=== PATIENT | male | born 1955 | race Caucasian/White ===

== ENCOUNTER 2018-07-23 17:19 | Emergency (ER) | payer BC ==
[2018-07-23] MEDS ORDERED: Famotidine 20 MG TAB ONE (17:33)
[2018-07-23] MEDS ORDERED: predniSONE 20 MG TAB ONE (17:33)
[2018-07-23] MEDS ORDERED: diphenhydrAMINE 25 MG CAP ONE (17:33)
== END 2018-07-23 18:02 | disposition home or self-care (01) ==
LOC: SCSER 17:19
DX: T78.40XA Allergy, unspecified, initial encounter (principal)
CPT/HCPCS: 99283; J7506

== ENCOUNTER 2018-08-04 16:26 | Outpatient (CLI) | payer BC ==
--- NOTE | 2018-08-04 17:12 | RAD ---
THREE VIEWS RIGHT FOOT: 08/04/18 HISTORY: Pain third and fourth metatarsals. AP, lateral and oblique views right foot obtained. There is a prominent calcaneal bone spur. Hallux valgus deformity is seen in the first metatarsophala ngeal joint. The bases of the metatarsals are unremarkable with no evidence of fractures. No bony lesions seen. No significant osteoarthritic changes seen. IMPRESSION: No evidence of acute right foot fractures or bony lesions. POS: [facility]
== END 2018-08-04 16:27 | disposition home or self-care (01) ==
LOC: BICRAD 16:26
PROVIDERS: ATTEND Internal Medicine Rheumatology
DX: M79.671 Pain in right foot (principal)

== ENCOUNTER 2018-12-03 15:56 | Outpatient (CLI) | payer BC ==
--- NOTE | 2018-12-03 16:36 | RAD ---
FEXAM: Chest Two Views 12/03/2018 4:33 PM HISTORY: Rheumatoid arthritis COMPARISON: None FINDINGS: Heart: Normal Pulmonary vessels: Pulmonary vasculature appears within normal limits. Costophrenic angles: The lungs are clear. Lungs: No confluent pneumonia, overt edema, pleural effusion, or other acute process. Pneumothorax: None Osseous structures: No acute osseous abnormality. IMPRESSION: No significant acute intrathoracic disease.
== END 2018-12-03 15:57 | disposition home or self-care (01) ==
LOC: BICRAD 15:56
PROVIDERS: ATTEND Internal Medicine Rheumatology
DX: M05.9 Rheumatoid arthritis with rheumatoid factor, unspecified (principal); M25.50 Pain in unspecified joint
CPT/HCPCS: 71046

== ENCOUNTER 2023-02-12 08:30 | Emergency (ER) | payer BC | END 2023-02-12 11:20 | disposition home or self-care (01) | LOC: ERS 08:30 | DX: S86.911A Strain of unspecified muscle(s) and tendon(s) at lower leg level, right leg, initial encounter (principal); W28.XXXA Contact with powered lawn mower, initial encounter ==

== ENCOUNTER 2023-04-14 08:01 | Outpatient (CLI) | payer BC ==
[2023-04-14] MEDS ORDERED: Iopamidol 370 76% 100 ML VIAL ONE (09:35)
== END 2023-04-14 08:02 | disposition home or self-care (01) ==
LOC: CT 08:01
PROVIDERS: ATTEND Internal Medicine Cardiovascular Disease
DX: I73.9 Peripheral vascular disease, unspecified (principal); I82.431 Acute embolism and thrombosis of right popliteal vein; I77.4 Celiac artery compression syndrome
CPT/HCPCS: 75635; 82565; Q9967

== ENCOUNTER 2023-04-23 15:50 | Outpatient (CLI) | payer BC ==
[2023-04-23 16:52] LABS: Hematocrit 35.5 % (38.8-50.0); Hemoglobin 11.8 g/dL (13.5-17.5); Mean Corpuscular HGB CONC 33.2 g/dL (32.0-36.0); Mean Corpuscular Hemoglobin 33.2 pg (27.0-33.0); Mean Platelet Volume 9.1 fl (7.4-10.4); Platelet Count 307 10x3/uL (150-450); RBC Distribution Width 12.9 % (11.5-14.5); Red Blood Cell (RBC) Count 3.55 10x6/uL (4.32-5.72); White Blood Cell (WBC) Count 5.4 10x3/uL (3.5-10.5)
[2023-04-23 17:17] LABS: Anion Gap 18 mmol/L (10-20); BUN (Urea Nitrogen) 23 mg/dL (8.4-25.7); Calc. Creatinine Clearance 0 mL/min (70-130); Calcium 9.1 mg/dL (7.8-10.44); Carbon Dioxide 23 mmol/L (23-31); Chloride 106 mmol/L (98-107); Estimated GFR 86; Glucose 89 mg/dL (80-115); Potassium 4.2 mmol/L (3.5-5.1); Sodium 143 mmol/L (136-145)
== END 2023-04-23 15:51 | disposition home or self-care (01) ==
LOC: LABBT 15:50
PROVIDERS: ATTEND Thoracic Surgery (Cardiothoracic Vascular Surgery)
DX: Z01.818 Encounter for other preprocedural examination (principal); I73.9 Peripheral vascular disease, unspecified
CPT/HCPCS: 80048; 85027; 93005; 93010

== ENCOUNTER 2023-04-23 16:00 | Inpatient (IN) | payer BC, MEDICARE ==
[2023-04-23 16:30] VITALS: BMI 30.2
[2023-04-24] MEDS ORDERED: PROPOFOL 200 MG/20 ML VIAL ONE (06:35)
[2023-04-24] MEDS ORDERED: PHENYLEPHRINE-NS 100 MCG/ML 10 ML SYRINGE ONE (06:35)
[2023-04-24] MEDS ORDERED: Dexamethasone 20 MG/5 ML VIAL ONE (06:35)
[2023-04-24] MEDS ORDERED: Ondansetron PF 4 MG/2 ML Vial ONE (06:35)
[2023-04-24] MEDS ORDERED: Lidocaine 1% PF 5 ML VIAL ONE (06:35)
[2023-04-24] MEDS ORDERED: Acetaminophen 500 MG TAB ONE (06:38)
[2023-04-24] MEDS ORDERED: Heparin 5,000 UNITS/ML VIAL ONE (06:40)
[2023-04-24] MEDS ORDERED: Bupivacaine 0.25% HCL 30 ML VIAL ONE (06:40)
[2023-04-24] MEDS ORDERED: Protamine Sulfate 50 MG/5 ML VIAL ONE (06:40)
[2023-04-24] MEDS ORDERED: EPINEPHrine 1 MG/10 ML Abboject SYRINGE ONE (06:40)
[2023-04-24] MEDS ORDERED: Phenylephrine 10 MG/ML VIAL ONE (06:55)
[2023-04-24] MEDS ORDERED: fentaNYL 50 mcg/mL 1 mL Vial ONE ×4 (06:55→11:27)
[2023-04-24] MEDS ORDERED: Magnesium 5 GM/10 ML VIAL ONE (06:55)
[2023-04-24] MEDS ORDERED: Clindamycin/D5W 900 mg/50 ml Premix Bag ONE (07:18)
[2023-04-24] MEDS ORDERED: Ondansetron HCl/PF 4 MG/2 ML Vial IVP PRN (08:39)
[2023-04-24] MEDS ORDERED: HYDROmorphone 2 MG/ML VIAL SLOW IVP PRN (08:39)
[2023-04-24] MEDS ORDERED: Promethazine HCl 25 MG/ML VIAL IM PRN (08:39)
[2023-04-24] MEDS ORDERED: Ipratropium/Albuterol 3 ML NEB NEB PRN (10:32)
[2023-04-24] MEDS ORDERED: fentaNYL 50 mcg/mL 1 mL Vial SLOW IVP PRN ×2 (10:32)
[2023-04-24] MEDS ORDERED: Ondansetron PF 4 MG/2 ML Vial IVP PRN (10:32)
[2023-04-24] MEDS ORDERED: HYDROcodone/Acetaminophen 5/325 mg Tablet PO PRN (10:32)
[2023-04-24] MEDS ORDERED: Acetaminophen 325 MG TAB PO PRN (10:32)
[2023-04-24] MEDS ORDERED: HYDROmorphone 0.5 MG/0.5 ML SYRINGE ONE ×4 (10:46→11:10)
[2023-04-24] MEDS ORDERED: Clindamycin/D5W 900 MG in Premix Bag 1 BAG IVPB SCH (12:00)
[2023-04-24] MEDS: HYDROcodone/Acetaminophen 5/325 mg Tablet PO PRN ×3 (13:34→22:55)
[2023-04-24] MEDS ORDERED: LevoFLOXacin 500 mg/D5W 500 MG in Premix Bag 1 BAG IVPB SCH (18:00)
[2023-04-25] MEDS: HYDROcodone/Acetaminophen 5/325 mg Tablet PO PRN ×2 (06:40→10:33)
[2023-04-25] MEDS ORDERED: predniSONE 1 MG TAB PO SCH (08:00)
[2023-04-25] MEDS ORDERED: Losartan 25 MG TAB PO SCH (09:00)
[2023-04-25] MEDS ORDERED: Non-Formulary Item 1 EACH (Losartan Potassium [Cozaar] 100 MG Tablet) PO SCH (09:00)
[2023-04-25] MEDS ORDERED: Rosuvastatin 5 MG TAB PO SCH (09:00)
[2023-04-25] MEDS ORDERED: Aspirin Chewable 81 MG TAB PO SCH (09:00)
[2023-04-25 12:20] VITALS: BP 126/78; TEMP 98.3
== END 2023-04-25 14:16 | disposition home or self-care (01) | DRG 254 ==
LOC: SURG A 04-24 06:03
PROVIDERS: ADMIT Thoracic Surgery (Cardiothoracic Vascular Surgery); ATTEND Thoracic Surgery (Cardiothoracic Vascular Surgery)
PROC: 04CT0ZZ Extirpation of Matter from Right Peroneal Artery, Open Approach (ICD-10-PCS; principal; 2023-04-24)
PROC: 04CP0ZZ Extirpation of Matter from Right Anterior Tibial Artery, Open Approach (ICD-10-PCS; 2023-04-24)
PROC: 041K09L Bypass Right Femoral Artery to Popliteal Artery with Autologous Venous Tissue, Open Approach (ICD-10-PCS; 2023-04-24)
DX: I74.3 Embolism and thrombosis of arteries of the lower extremities (principal); M06.9 Rheumatoid arthritis, unspecified; I10 Essential (primary) hypertension; E78.5 Hyperlipidemia, unspecified; Z98.42 Cataract extraction status, left eye
CPT/HCPCS: 88304; J0171; J1100; J1170; J1644; J1956; J2370; J2405; J2704; J2720; J3010; J3475; J3490; J7512; S0020

== ENCOUNTER 2025-03-24 10:55 | Outpatient (CLI) | payer BC, MEDICARE ==
[2025-03-24 12:57] LABS: #Basophils 0.03 10x3/uL (0.0-0.2); #Eosinophils 0.08 10x3/uL (0.0-0.7); #Monocytes 0.61 10x3/uL (0.11-0.59); #Neutrophils 3.21 10x3/uL (1.40-6.50); %Basophils 0.6 % (0.0-1.0); %Eosinophils 1.5 % (0.0-10.0); %Lymphocytes 26.4 % (21.0-51.0); %Monocytes 11.4 % (0.0-10.0); %Neutrophils 59.7 % (42.0-75.0); Hematocrit 35.8 % (42.0-52.0); Hemoglobin 11.8 g/dL (14.0-18.0); Mean Corpuscular Hemoglobin 32.6 pg (27.0-31.0); Mean Corpuscular Volume 98.9 fL (78.0-98.0); Platelet Count 338 10x3/uL (130-400); Red Blood Cell (RBC) Count 3.62 mill/uL (4.70-6.10); White Blood Cell (WBC) Count 5.37 10x3/uL (4.8-10.8)
[2025-03-24 13:06] LABS: Bacteria/HPF None Seen HPF (None Seen); Glucose, Urine (Dipstick) Normal (Negative); Leukocyte Negative Leu/uL (Negative); Protein, Urine (Dipstick) 10 mg/dL (Neg-Trace); RBC/HPF 0-3 HPF (0-3); Specific Gravity, Urine 1.028 (1.002-1.036); WBC/HPF 0-3 HPF (0-3)
[2025-03-24 13:11] LABS: INR-International Normal Ratio 1.6; Prothrombin Time 18.9 sec (12.0-14.7)
[2025-03-24 13:12] LABS: PTT 41.2 sec (22.9-36.1)
[2025-03-24 13:34] LABS: Anion Gap 11 mmol/L (10-20); BUN (Urea Nitrogen) 19 mg/dL (8.4-25.7); Calc. Creatinine Clearance 0 mL/min (70-130); Calcium 9.0 mg/dL (7.8-10.44); Carbon Dioxide 25 mmol/L (23-31); Chloride 102 mmol/L (98-107); Glucose 98 mg/dL (80-115); Potassium 3.8 mmol/L (3.5-5.1); Sodium 134 mmol/L (136-145)
== END 2025-03-24 10:56 | disposition home or self-care (01) ==
LOC: LABBT 10:55
PROVIDERS: ATTEND Urology
DX: Z01.818 Encounter for other preprocedural examination (principal); C61 Malignant neoplasm of prostate
CPT/HCPCS: 71046; 80048; 81001; 85025; 85610; 85730; 86850; 86900; 86901; 87086; 93005; 93010

== ENCOUNTER 2025-04-07 06:13 | Observation (INO) | payer BC, MEDICARE ==
[2025-04-07] MEDS ORDERED: cefOXitin Sodium 1 GM in Sodium Chloride 0.9% 100 ML IVPB SCH (06:30)
[2025-04-07] MEDS ORDERED: Gentamicin Sulfate 80 MG in Premix 1 BAG IVPB SCH (06:30)
[2025-04-07] MEDS ORDERED: SUCCINYLCHOLINE/SOD CL,ISO/PF 200 MG/10 ML SYRINGE FS ONE (07:00)
[2025-04-07] MEDS ORDERED: Lidocaine 1% PF 5 ML VIAL ONE (07:00)
[2025-04-07] MEDS ORDERED: PROPOFOL 20 ML ONE (07:00)
[2025-04-07] MEDS ORDERED: fentaNYL PF 100 MCG/2 ML SYRINGE ONE (07:11)
[2025-04-07] MEDS ORDERED: cefTRIAXone (ROCEPHIN) 1 GM VIAL ONE (07:25)
[2025-04-07] MEDS ORDERED: PHENYLEPHRINE-NS 100 MCG/ML 10 ML SYRINGE ONE (07:45)
[2025-04-07] MEDS ORDERED: Bupivacaine 0.25% HCL 30 ML VIAL ONE (08:13)
[2025-04-07] MEDS ORDERED: HYDROmorphone 2 MG/ML VIAL ONE (08:50)
[2025-04-07] MEDS ORDERED: Glycopyrrolate 0.2 MG/ML 5 ML SYRINGE ONE (09:06)
[2025-04-07] MEDS ORDERED: Ondansetron PF 4 MG/2 ML Vial ONE (09:18)
[2025-04-07] MEDS ORDERED: NEOSTIGMINE 3 MG/3 ML SYRINGE ONE (12:16)
[2025-04-07] MEDS ORDERED: Ondansetron PF 4 MG/2 ML Vial IVP PRN (12:31)
[2025-04-07] MEDS ORDERED: Mag-Al 1200 mg/1200 mg/30 ML UDCUP PO PRN (12:31)
[2025-04-07] MEDS ORDERED: diphenhydrAMINE 25 MG CAP PO PRN (12:31)
[2025-04-07] MEDS ORDERED: Hyoscyamine SL 0.125 MG TAB SL PRN (12:31)
[2025-04-07] MEDS ORDERED: Oxybutynin 5 MG TAB PO PRN (12:31)
[2025-04-07] MEDS ORDERED: hydrALAZINE 20 MG/ML VIAL SLOW IVP PRN (12:31)
[2025-04-07] MEDS ORDERED: oxyCODONE 5 MG TAB PO PRN (12:34)
[2025-04-07] MEDS: Ketorolac Tromethamine 30 MG (1 mL) VIAL IVP SCH ×2 (14:32→16:08)
[2025-04-07] MEDS: Acetaminophen 500 MG TAB PO SCH ×2 (14:32→16:08)
[2025-04-07] MEDS: oxyCODONE 5 MG TAB PO PRN (14:33)
[2025-04-07 15:17] LABS: #Basophils Less than 0.03 10x3/uL (0.0-0.2); #Eosinophils Less than 0.03 10x3/uL (0.0-0.7); #Monocytes 0.28 10x3/uL (0.11-0.59); #Neutrophils 10.38 10x3/uL (1.40-6.50); %Basophils 0.1 % (0.0-1.0); %Eosinophils 0.0 % (0.0-10.0); %Lymphocytes 2.8 % (21.0-51.0); %Monocytes 2.5 % (0.0-10.0); %Neutrophils 94.3 % (42.0-75.0); Hematocrit 35.0 % (42.0-52.0); Hemoglobin 11.5 g/dL (14.0-18.0); Mean Corpuscular Hemoglobin 32.8 pg (27.0-31.0); Mean Corpuscular Volume 99.7 fL (78.0-98.0); Platelet Count 272 10x3/uL (130-400); Red Blood Cell (RBC) Count 3.51 mill/uL (4.70-6.10); White Blood Cell (WBC) Count 11.01 10x3/uL (4.8-10.8)
[2025-04-07 15:42] LABS: Anion Gap 12 mmol/L (10-20); BUN (Urea Nitrogen) 12 mg/dL (8.4-25.7); Calc. Creatinine Clearance 97 mL/min (70-130); Calcium 8.1 mg/dL (7.8-10.44); Carbon Dioxide 22 mmol/L (23-31); Chloride 107 mmol/L (98-107); Glucose 153 mg/dL (80-115); Potassium 3.4 mmol/L (3.5-5.1); Sodium 138 mmol/L (136-145)
[2025-04-07 15:48] VITALS: BMI 29.9
[2025-04-08 05:27] LABS: #Basophils Less than 0.03 10x3/uL (0.0-0.2); #Eosinophils Less than 0.03 10x3/uL (0.0-0.7); #Monocytes 0.84 10x3/uL (0.11-0.59); #Neutrophils 5.86 10x3/uL (1.40-6.50); %Basophils 0.1 % (0.0-1.0); %Eosinophils 0.3 % (0.0-10.0); %Lymphocytes 14.1 % (21.0-51.0); %Monocytes 10.7 % (0.0-10.0); %Neutrophils 74.5 % (42.0-75.0); Hematocrit 34.7 % (42.0-52.0); Hemoglobin 11.0 g/dL (14.0-18.0); Mean Corpuscular Hemoglobin 31.5 pg (27.0-31.0); Mean Corpuscular Volume 99.4 fL (78.0-98.0); Platelet Count 250 10x3/uL (130-400); Red Blood Cell (RBC) Count 3.49 mill/uL (4.70-6.10); White Blood Cell (WBC) Count 7.86 10x3/uL (4.8-10.8)
[2025-04-08 06:07] LABS: Anion Gap 12 mmol/L (10-20); BUN (Urea Nitrogen) 12 mg/dL (8.4-25.7); Calc. Creatinine Clearance 101 mL/min (70-130); Calcium 7.9 mg/dL (7.8-10.44); Carbon Dioxide 20 mmol/L (23-31); Chloride 107 mmol/L (98-107); Glucose 105 mg/dL (80-115); Potassium 3.9 mmol/L (3.5-5.1); Sodium 135 mmol/L (136-145)
[2025-04-08] MEDS: Losartan 25 MG TAB PO SCH (08:40)
[2025-04-08 13:51] VITALS: BP 122/71; TEMP 98
== END 2025-04-08 14:00 | disposition home or self-care (01) ==
LOC: SDC 06:13 → SURG A 14:16
PROVIDERS: ADMIT Urology; ATTEND Urology
PROC: 0VB04ZZ Excision of Prostate, Percutaneous Endoscopic Approach (ICD-10-PCS; principal; 2025-04-07)
DX: C61 Malignant neoplasm of prostate (principal); Z79.899 Other long term (current) drug therapy; Z88.8 Allergy status to other drugs, medicaments and biological substances; Z88.0 Allergy status to penicillin; Z88.2 Allergy status to sulfonamides
CPT/HCPCS: 36415; 80048; 85025; 86850; 86900; 86901; A4333; C1713; C1776; J0169; J0665; J0694; J0696; J1100; J1171; J1580; J1885; J2250; J2405; J2704; J3010; J7030; S2900

== ENCOUNTER 2025-04-18 08:34 | Outpatient (CLI) | payer BC ==
[2025-04-18] MEDS ORDERED: Iopamidol-370 76% 500 ML BOT (X-RAY USE) FS ONE (08:42)
== END 2025-04-18 08:35 | disposition home or self-care (01) ==
LOC: RAD 08:34
PROVIDERS: ATTEND Urology
PROC: BT1BZZZ Fluoroscopy of Bladder and Urethra (ICD-10-PCS; principal; 2025-04-18)
DX: N40.1 Benign prostatic hyperplasia with lower urinary tract symptoms (principal); R97.20 Elevated prostate specific antigen [PSA]
CPT/HCPCS: 51600; 74430; Q9967

== ENCOUNTER 2025-04-29 07:32 | Outpatient (CLI) | payer BC ==
[2025-04-29] MEDS ORDERED: Iopamidol-370 76% 500 ML BOT (X-RAY USE) FS ONE (07:39)
== END 2025-04-29 07:33 | disposition home or self-care (01) ==
LOC: RAD 07:32
PROVIDERS: ATTEND Urology
PROC: BT0BZZZ Plain Radiography of Bladder and Urethra (ICD-10-PCS; principal; 2025-04-29)
DX: C61 Malignant neoplasm of prostate (principal)
CPT/HCPCS: 51600; 74430; Q9967

== ENCOUNTER 2025-05-09 07:43 | Outpatient (CLI) | payer BC ==
[2025-05-09] MEDS ORDERED: Iopamidol-370 76% 500 ML BOT (X-RAY USE) FS ONE (07:59)
== END 2025-05-09 07:44 | disposition home or self-care (01) ==
LOC: RAD 07:43
PROVIDERS: ATTEND Urology
DX: R97.20 Elevated prostate specific antigen [PSA] (principal)
CPT/HCPCS: 51600; 74430; Q9967